=== PATIENT | male | born 1950 | race Caucasian/White ===

== ENCOUNTER 2017-03-05 06:42 | Day surgery (SDC) | payer MEDICARE, BC ==
[2017-03-05] MEDS ORDERED: Sodium Chloride 0.9% 10 ML Syringe FLUSH PRN (06:45)
[2017-03-05] MEDS ORDERED: Lactated Ringers 1,000 ML IV SCH (06:45)
[2017-03-05] MEDS ORDERED: Propofol 200 MG/20 ML SDV IV ONE (08:00)
[2017-03-05] MEDS ORDERED: Midazolam 1 MG/ML 2 ML SDV IV ONE (08:00)
--- NOTE | 2017-03-05 08:12 | PCM.HPR ---
H & P Addendum review - H & P Addendum Review Date of Original H & P: 02/19/17 Date Reviewed: 03/05/17 Time Reviewed: 08:05 Patient was Examined: No Changes
[2017-03-05] MEDS ORDERED: Simethicone Drops 40 MG/0.6 ML 30 ML Bottle PO ONE (08:22)
--- NOTE | 2017-03-05 08:42 | PCM.OPNOTE ---
- General Post-Op/Procedure Note Date of Surgery/Procedure: 03/05/17 Operative Procedure(s): Colonoscopy Findings: Normal Pre Op Diagnosis: Hx Colon Polyps Post-Op Diagnosis: Same Anesthesia Technique: MAC Primary Surgeon: Paco Leigh Anesthesia Provider: Bernice Nieto Complications: None Condition: Good
--- NOTE | 2017-03-05 13:04 | OR ---
DATE OF OPERATION: 03/05/2017 SURGEON: Paco Leigh MD PREOPERATIVE DIAGNOSIS: History of colon polyps. POSTOPERATIVE DIAGNOSIS: Normal colonoscopy. PROCEDURE PERFORMED: Colonoscopy. ANESTHESIA: IV sedation. DESCRIPTION OF PROCEDURE: The patient was brought to the procedure room, where he was placed on his left side and IV sedation administered. Digital rectal exam was performed, which was normal. The colonoscope was inserted and advanced to the level of the cecum with some difficulty getting around the hepatic flexure requiring pressure on the abdomen. The cecum was reached and position confirmed by identifying the appendiceal lumen and ileocecal valve. Prep was good and surfaces were well visualized. Upon withdrawing the scope, the ascending, transverse, and descending colon were normal in appearance. The sigmoid colon and rectum were normal. Retroflexion was normal. Air was removed and the scope withdrawn. The patient tolerated the procedure well and returned to recovery in stable condition. Recommend routine colon screening again in 5 years. /[id number] JENNIFER/VESNA
== END 2017-03-05 10:00 | disposition home or self-care (01) ==
LOC: FB.SDS 06:42
PROVIDERS: ATTEND Surgery
DX: Z12.11 Encounter for screening for malignant neoplasm of colon (principal); Z86.010 Personal history of colon polyps; I10 Essential (primary) hypertension; E11.9 Type 2 diabetes mellitus without complications; E78.00 Pure hypercholesterolemia, unspecified; E66.3 Overweight; Z90.49 Acquired absence of other specified parts of digestive tract; Z79.82 Long term (current) use of aspirin; Z79.899 Other long term (current) drug therapy; Z68.32 Body mass index [BMI] 32.0-32.9, adult
CPT/HCPCS: 00810; 82962; A9270; G0105; J2250; J2704; J7120

== ENCOUNTER 2017-12-31 12:15 | Emergency (ER) | payer MEDICARE, BC ==
--- NOTE | 2017-12-31 12:44 | EDM.PDOC ---
ED HPI GENERAL MEDICAL PROBLEM - General Chief Complaint: Back Pain or Injury Stated Complaint: RT RIB PAIN Time Seen by Provider: 12/31/17 12:25 Source of Information: Reports: Patient, Family History Limitations: Reports: No Limitations - History of Present Illness INITIAL COMMENTS - FREE TEXT/NARRATIVE: Agus fell about 10 feet from a ladder while trimming a tree at noon today, landing onto a cedar fence post. He struck the posterior chest near R CVA, and fell, no LOC. There is residual pain and tenderness overly the R CVA portion of posterior chest wall with markings but no crepitus. BS are present equally and bilaterally. He has since voided and no pink tinged urine was detected. He has taken no medicine. rib/back Pain Score (Numeric/FACES): 10 - Related Data Allergies Allergy/AdvReac Type Severity Reaction Status Date / Time No Known Allergies Allergy Verified 12/31/17 13:23 Home Meds: Home Meds Aspirin 325 mg PO DAILY 03/02/17 [History] Brimonidine/Timolol [Combigan 0.2%/0.5% Ophth Soln] 1 drop EYEBOTH BID 03/02/17 [History] Flaxseed Oil [Flaxseed] 1,000 mg PO DAILY 03/02/17 [History] Glimepiride 4 mg PO BID 03/02/17 [History] Lisinopril 20 g PO DAILY 03/02/17 [History] Lutein 10 mg PO DAILY 03/02/17 [History] Miglitol 50 mg PO TID 03/02/17 [History] Pioglitazone HCl 30 mg PO DAILY 03/02/17 [History] SitaGLIPtin [Januvia] 100 mg PO DAILY 03/02/17 [History] Travoprost [Travatan Z 0.004% Ophth Soln] 1 drop EYEBOTH BEDTIME 03/02/17 [ History] atorvaSTATin [Lipitor] 80 mg PO BEDTIME 03/02/17 [History] Cinnamon Bark [Cinnamon] 1,000 mg PO DAILY 12/31/17 [History] Past Medical History HEENT History: Reports: Glaucoma, Impaired Vision, Macular Degeneration Cardiovascular History: Reports: High Cholesterol, Hypertension Respiratory History: Reports: None Gastrointestinal History: Reports: Colon Polyp, Diverticulosis Genitourinary History: Reports: None Musculoskeletal History: Reports: Other (See Below) Other Musculoskeletal History: HAMMER TOE RIGHT FOOT Endocrine/Metabolic History: Reports: Diabetes, Type II - Past Surgical History GI Surgical History: Reports: Cholecystectomy, Colonoscopy Musculoskeletal Surgical History: Reports: Arthroscopic Knee, Shoulder Surgery Social & Family History - Caffeine Use Caffeine Use: Reports: Coffee ED ROS GENERAL - Review of Systems Review Of Systems: ROS reveals no pertinent complaints other than HPI. ED EXAM, GENERAL - Physical Exam Exam: See Below Exam Limited By: No Limitations General Appearance: Alert, WD/WN, Mild Distress, Obese Eye Exam: Bilateral Eye: EOMI, Normal Inspection, PERRL Ears: Normal External Exam Nose: Normal Inspection Throat/Mouth: Normal Inspection, Normal Lips, Normal Gums, Normal Oropharynx, Normal Voice, No Airway Compromise Head: Atraumatic, Normocephalic Neck: Normal Inspection, Supple, Non-Tender, Full Range of Motion Respiratory/Chest: No Respiratory Distress, Lungs Clear, Normal Breath Sounds, No Accessory Muscle Use, Other (chest tender overlying R CVA) Cardiovascular: Normal Peripheral Pulses, No Edema, No Gallop, No JVD, No Murmur , No Rub, Irregularly Irregular GI/Abdominal: Normal Bowel Sounds, Soft, Non-Tender, No Organomegaly, No Distention, No Mass (Male) Exam: Deferred Rectal (Males) Exam: Deferred Back Exam: CVA Tenderness (R), Paraspinal Tenderness Extremities: Limited Range of Motion (L shoulder: minor abrasion, healing wound from prior rotator cuff repair October 2017) Neurological: Alert, Oriented, CN II-XII Intact, Normal Cognition, Normal Gait, No Motor/Sensory Deficits Psychiatric: Normal Affect, Normal Mood Skin Exam: Warm, Dry, Intact, Normal Color Lymphatic: No Adenopathy Course - Vital Signs Text/Narrative:: I reviewed x rays of chest and rib detail, no fx seen. The UA was normal for age. Toradol 30 mg IM administered for pain management, and Adacel IM for tetanus prophylaxis before discharge. Last Recorded V/S: Last Vital Signs Temp Pulse 89 12/31/17 12:15 Resp 16 12/31/17 12:15 BP 140/62 12/31/17 12:15 Pulse Ox 100 12/31/17 12:15 - Orders/Labs/Meds Orders: Active Orders 24 hr Category Date Time Status Vaccines to be Administered [RC] PER UNIT ROUTINE Care 12/31/17 13:51 Ordered Diphth,Pertuss(Acell),Tet Vac [Adacel] Med 12/31/17 13:51 Once 0.5 ml IM .ONCE ONE EKG 12 Lead [EK] Routine Ther 12/31/17 12:34 Ordered Labs: Laboratory Tests 12/31/17 Range/Units 13:18 Urine Color Yellow (YELLOW) Urine Appearance Clear (CLEAR) Urine pH 5.0 (5.0-6.5) Ur Specific [place] 1.025 (1.010-1.025) Urine Protein Negative (NEGATIVE) mg/dL Urine Glucose (UA) Normal (NEGATIVE) mg/dL Urine Ketones Negative (NEGATIVE) mg/dL Urine Occult Blood Negative (NEGATIVE) Urine Nitrite Negative (NEGATIVE) Urine Bilirubin Negative (NEGATIVE) Urine Urobilinogen 1 H (NEGATIVE) mg/dL Ur Leukocyte Esterase Negative (NEGATIVE) Urine RBC 0-5 (0) Urine WBC 0-5 (0) Ur Squamous Epith Cells Few H (NS,R,O) Urine Bacteria Few H (NS) Meds: Medications Discontinued Medications Generic Name Dose Route Start Last Admin Trade Name Freq PRN Reason Stop Dose Admin Ketorolac Tromethamine 30 mg 12/31/17 13:07 12/31/17 13:18 Toradol IM 12/31/17 13:08 30 mg ONETIME ONE Administration Departure - Departure Time of Disposition: 13:55 Disposition: Home, Self-Care 01 Condition: Fair Clinical Impression: Abrasion of left shoulder, initial encounter Contusion of rib on right side Qualifiers: Encounter type: initial encounter Qualified Code(s): S20.211A - Contusion of right front wall of thorax, initial encounter - Discharge Information *PRESCRIPTION DRUG MONITORING PROGRAM REVIEWED*: Not Applicable *COPY OF PRESCRIPTION DRUG MONITORING REPORT IN PATIENT RAÚL: Not Applicable Instructions: Rib Contusion Referrals: Rodriguez Carranza MD [Primary Care Provider] - Forms: ED Department Discharge Care Plan Goals: Follow up with regular DrEliud as needed. - Problem List & Annotations (1) Abrasion of left shoulder, initial encounter SNOMED Code(s): 900234350 Code(s): S40.212A - ABRASION OF LEFT SHOULDER, INITIAL ENCOUNTER Status: Acute Current Visit: Yes Annotation/Comment:: I suggested routine wound cares. (2) Contusion of rib on right side SNOMED Code(s): 930164494 Code(s): S20.211A - CONTUSION OF RIGHT FRONT WALL OF THORAX, INITIAL ENCOUNTER Status: Acute Current Visit: Yes Annotation/Comment:: R CVA tenderness with normal chest x ray suggestive of contusion to ribs. I suggested NSAIDs alternating with Tylenol for pain relief, cool packs, and rest. Qualifiers: Encounter type: initial encounter Qualified Code(s): S20.211A - Contusion of right front wall of thorax, initial encounter - Problem List Review Problem List Initiated/Reviewed/Updated: Yes - My Orders Last 24 Hours: My Active Orders 12/31/17 12:34 EKG 12 Lead [EK] Routine 12/31/17 13:51 Vaccines to be Administered [RC] PER UNIT ROUTINE Diphth,Pertuss(Acell),Tet Vac [Adacel] 0.5 ml IM .ONCE ONE - Assessment/Plan Last 24 Hours: My Active Orders 12/31/17 12:34 EKG 12 Lead [EK] Routine 12/31/17 13:51 Vaccines to be Administered [RC] PER UNIT ROUTINE Diphth,Pertuss(Acell),Tet Vac [Adacel] 0.5 ml IM .ONCE ONE Plan: Follow up with PCP regarding issues if sxs are not improving.
[2017-12-31] MEDS ORDERED: Ketorolac 30 MG/ML SDV IM ONE (13:07)
--- NOTE | 2017-12-31 13:32 | CR ---
INDICATION: Fell from tree, right posterior cva pain and tenderness. No loss of consciousness, no shortness of breath, pain with respirations overlying right cva. RIGHT RIBS WITH CHEST: CHEST: PA view of the chest was obtained 12/31/2017 - no comparisons. The heart is normal in size and shape. The aorta is slightly tortuous. An active infiltrate, effusion, contusion, or pneumothorax was not identified. There is question of a mild dextroconcave scoliosis, which could be positional. There is rotation to the right. IMPRESSION: No acute process. RIGHT RIBS: Three views of the right ribs revealed no displaced fracture site or other bony abnormality. If an occult fracture site is suspected clinically, re-examination in 10-14 days, nuclear bone imaging, or CT examination may be helpful. Report was given in person to Dr. Nicole immediately after the examination became available on 12/31/2017. ZENIA
[2017-12-31] MEDS ORDERED: Diphtheria,Pertussis(Acell),Tetanus Vaccine 0.5 ML SDV IM ONE (13:51)
== END 2017-12-31 14:01 | disposition home or self-care (01) ==
LOC: FB.ED 12:15
DX: S20.211A Contusion of right front wall of thorax, initial encounter (principal); S40.212A Abrasion of left shoulder, initial encounter; I10 Essential (primary) hypertension; E11.9 Type 2 diabetes mellitus without complications; Z23 Encounter for immunization; Z79.899 Other long term (current) drug therapy; Z79.82 Long term (current) use of aspirin; W11.XXXA Fall on and from ladder, initial encounter
CPT/HCPCS: 71101; 81001; 90471; 90715; 93005; 96372; 99284; J1885

== ENCOUNTER → 2022-04-04 | Day surgery (SDC) | payer BC, MEDICARE ==
[~2022-04-04] MED LIST: Propofol 200 MG/20 ML SDV IV ONE; Sodium Chloride 0.9% 10 ML Syringe FLUSH PRN
[2022-04-04] MEDS: Lactated Ringers 1,000 ML IV SCH (08:10)
[2022-04-04] MEDS: Simethicone Drops 40 MG/0.6 ML 30 ML Bottle PO ONE (08:56)
== END | disposition home or self-care (01) ==
LOC: FB.SDS 07:22
PROVIDERS: ATTEND Surgery
DX: Z12.11 Encounter for screening for malignant neoplasm of colon (principal); K57.30 Diverticulosis of large intestine without perforation or abscess without bleeding; I10 Essential (primary) hypertension; E78.00 Pure hypercholesterolemia, unspecified; M19.90 Unspecified osteoarthritis, unspecified site; E11.9 Type 2 diabetes mellitus without complications; Z80.0 Family history of malignant neoplasm of digestive organs; Z88.8 Allergy status to other drugs, medicaments and biological substances; Z79.899 Other long term (current) drug therapy; Z79.82 Long term (current) use of aspirin; Z90.49 Acquired absence of other specified parts of digestive tract; Z98.890 Other specified postprocedural states; Z96.659 Presence of unspecified artificial knee joint
CPT/HCPCS: 00811; 45378; 82947; A9270; J2704; J7120